=== PATIENT | male | born 1940 | race Caucasian/White ===

== ENCOUNTER 2024-02-21 11:05 | Day surgery (SDC) | payer OTHER ==
[~2024-02-21] VITALS: Ht 190.5 cm; Wt 96.5 kg
[~2024-02-21 11:05] MED LIST: ALOGLIPTIN25 M1 PO; ATOR40TA PO; Acetaminophen650 M1 PO; Aspir 8181 MG PO; B-121000 MC7 PO; B-12500 MC2 PO; Balanced Salt Epinephrine Irrigation Solution 500 mL IR SCH; FURO20 PO; GLIP10 PO; LANTUS SOL100 UNIT/1; Lidocaine HCl/Pf 1% 5 ML VIAL XX SCH; METF500 PO; Moxifloxacin HCL 0.5 MG/0.1 ML 0.4MLSYR RIGHTEYE SCH; PHENYLEPHRINE\\TROPICAMIDE\\TETRACAINE OPHTHALMIC DILATING SOLN RIGHTEYE PRN; Povidone-Iodine 450 DROP/30 ML Solution ONE; Povidone-Iodine 450 DROP/30 ML Solution RIGHTEYE SCH; THERA-D2000 UNIT PO; Tetracaine HCl/Pf 0.5% Opth Soln 4 ml ONE; Triamcinolone Inj Susp 40 MG / ML 1ML Vial INJ SCH; Triamcinolone Inj Susp 40 MG / ML 1ML Vial ONE
[2024-02-21] MEDS ORDERED: Diazepam 2 MG Tab ONE (12:08)
[2024-02-21] MEDS ORDERED: FentaNYL Citrate 50 MCG/ML 2 ML Injection ONE (13:10)
[2024-02-21 13:36] VITALS: BP 157/71
== END 2024-02-21 13:55 | disposition home or self-care (01) ==
LOC: ORSCSDS 11:05
PROVIDERS: Ophthalmology
PROC: 08RJ3JZ Replacement of Right Lens with Synthetic Substitute, Percutaneous Approach (ICD-10-PCS; principal; 2024-02-21 13:00)
DX: E11.36 Type 2 diabetes mellitus with diabetic cataract (principal); H25.811 Combined forms of age-related cataract, right eye; H52.201 Unspecified astigmatism, right eye; I10 Essential (primary) hypertension; E78.5 Hyperlipidemia, unspecified; I49.3 Ventricular premature depolarization; I35.0 Nonrheumatic aortic (valve) stenosis; Z86.16 Personal history of COVID-19; Z79.82 Long term (current) use of aspirin; Z79.4 Long term (current) use of insulin; Z79.84 Long term (current) use of oral hypoglycemic drugs; Z79.899 Other long term (current) drug therapy
CPT/HCPCS: 82947; A9270; J3010; J3301; V2632

== ENCOUNTER 2024-02-28 09:48 | Day surgery (SDC) | payer OTHER ==
[~2024-02-28] VITALS: Ht 188 cm; Wt 89.2 kg
[~2024-02-28 09:48] MED LIST changes: +Moxifloxacin HCL 0.5 MG/0.1 ML 0.4MLSYR LEFTEYE SCH; -Moxifloxacin HCL 0.5 MG/0.1 ML 0.4MLSYR RIGHTEYE SCH; +PHENYLEPHRINE\\TROPICAMIDE\\TETRACAINE OPHTHALMIC DILATING SOLN LEFTEYE PRN; -PHENYLEPHRINE\\TROPICAMIDE\\TETRACAINE OPHTHALMIC DILATING SOLN RIGHTEYE PRN; +Povidone-Iodine 450 DROP/30 ML Solution LEFTEYE SCH; -Povidone-Iodine 450 DROP/30 ML Solution RIGHTEYE SCH
[2024-02-28] MEDS ORDERED: Diazepam 2 MG Tab ONE (10:36)
--- NOTE | 2024-02-28 10:57 | NUR ---
02/28/24 1057 Kacey Conway VALIUM 4MG AT 1046, 0/10 AXIETY. TETRACAINE AT 1049, PLEDGET AT 1051
[2024-02-28] MEDS ORDERED: Tetracaine HCl 0.5% Opth Soln 15 ml LEFTEYE ONE (11:22)
[2024-02-28 11:50] VITALS: BP 155/67
== END 2024-02-28 12:05 | disposition home or self-care (01) ==
LOC: ORSCSDS 09:48
PROVIDERS: Ophthalmology
PROC: 08RK3JZ Replacement of Left Lens with Synthetic Substitute, Percutaneous Approach (ICD-10-PCS; principal; 2024-02-28 11:30)
DX: E11.36 Type 2 diabetes mellitus with diabetic cataract (principal); H25.812 Combined forms of age-related cataract, left eye; Z96.1 Presence of intraocular lens; I10 Essential (primary) hypertension; J44.9 Chronic obstructive pulmonary disease, unspecified; E78.5 Hyperlipidemia, unspecified; Z87.891 Personal history of nicotine dependence; Z79.82 Long term (current) use of aspirin; Z79.4 Long term (current) use of insulin; Z79.84 Long term (current) use of oral hypoglycemic drugs; Z79.899 Other long term (current) drug therapy
CPT/HCPCS: 82947; A9270; J3301; V2632